=== PATIENT | male | born 2000 | race Two or more races ===

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

== ENCOUNTER 2021-06-03 20:16 | Emergency (ER) | payer OTHER, MEDICAID ==
[2021-06-03] MEDS ORDERED: lidocaine 1% 20 ML MDV SUBQ ONE (20:42)
[2021-06-03] MEDS ORDERED: TETANUS/DIPHTHERIA/PERTUSSIS 0.5 ML SYRINGE IM ONE (20:42)
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
[2021-06-03] MEDS ORDERED: LIDOCAINE 1% 10 ML MDV SUBQ ONE (20:49)
[2021-06-03] MEDS ORDERED: BUPIVACAINE 0.5% PF 10 ML VIAL SUBQ STA (20:54)
[2021-06-03] MEDS ORDERED: BACITRACIN ZINC OINT 1 PACKET TOP STA (21:13)
[2021-06-03 21:39] VITALS: BP 115/68
== END 2021-06-03 21:28 | disposition home or self-care (01) ==
LOC: ED 20:16
DX: S61.411A Laceration without foreign body of right hand, initial encounter (principal); W26.0XXA Contact with knife, initial encounter; Y93.83 Activity, rough housing and horseplay; Y92.009 Unspecified place in unspecified non-institutional (private) residence as the place of occurrence of the external cause; F17.200 Nicotine dependence, unspecified, uncomplicated; Z23 Encounter for immunization; Z71.85 Encounter for immunization safety counseling
CPT/HCPCS: 12002; 90471; 90715; 99283; A9270